=== PATIENT | male | born 1960 | race Caucasian/White ===

== ENCOUNTER 2024-06-26 13:57 | Outpatient (CLI) | payer OTHER | END 2024-06-26 14:08 | disposition home or self-care (01) | LOC: TOM 13:57 | DX: H92.01 Otalgia, right ear (principal) ==

== ENCOUNTER 2024-10-22 10:13 | Outpatient (CLI) | payer OTHER | END 2024-10-22 10:29 | disposition home or self-care (01) | LOC: MRI 10:13 | DX: G50.0 Trigeminal neuralgia (principal); G50.1 Atypical facial pain | CPT/HCPCS: 70553; Q9965 ==

== ENCOUNTER 2024-12-30 08:14 | Outpatient (CLI) | payer OTHER | END 2024-12-30 08:17 | disposition home or self-care (01) | LOC: SONOGRAMA 08:14 | DX: K76.0 Fatty (change of) liver, not elsewhere classified (principal); R10.2 Pelvic and perineal pain ==

== ENCOUNTER 2024-12-30 09:02 | Outpatient (CLI) | payer OTHER ==
[2024-12-31 09:11] LABS: ESTRADIOL SERUM 25.9 pg/mL (7.6-42.6); PROLACTIN 8.9 ng/mL (3.6-25.2)
[2025-01-01 15:12] LABS: T T 658.0 ng/dL (264-916); test free 9.5 pg/mL (6.6-18.1)
== END 2024-12-30 09:07 | disposition home or self-care (01) ==
LOC: LAB 09:02
DX: E55.9 Vitamin D deficiency, unspecified (principal); D64.9 Anemia, unspecified; E27.9 Disorder of adrenal gland, unspecified; N40.0 Benign prostatic hyperplasia without lower urinary tract symptoms

== ENCOUNTER 2025-05-29 08:27 | Outpatient (CLI) | payer OTHER | END 2025-05-29 08:33 | disposition home or self-care (01) | LOC: MRI 08:27 | DX: R07.89 Other chest pain (principal) | CPT/HCPCS: 72146 ==